=== PATIENT | male | born 1950 | race Caucasian/White ===

== ENCOUNTER 2017-07-09 16:09 | Inpatient (IN) | payer MEDICARE, SELFPAY ==
[2017-07-09] MEDS ORDERED: Adacel (T-DAP) 0.5 ML VIAL ONE (16:35)
[2017-07-09 17:08] LABS: #Eosinphils 0.1 thou/uL (0.0-0.7); #Lymphocytes 1.9 thou/uL (1.20-3.40); #Monocytes 1.4 thou/uL (0.11-0.59); #Neutrophils 15.3 thou/uL (1.40-6.50); %Basophils 0.2 % (0.0-1.0); %Eosinophils 0.5 % (0.0-10.0); %Lymphocytes 10.1 % (21.0-51.0); %Monocytes 7.4 % (0.0-10.0); %Neutrophils 81.9 % (42.0-75.0); Mean Corpuscular HGB CONC 35.7 g/dL (32.0-36.0); Mean Corpuscular Hemoglobin 33.1 pg (27.0-31.0); Mean Corpuscular Volume 92.6 fl (80.0-94.0); Mean Platelet Volume 6.9 fL (7.4-10.4); Platelet Count 269 thou/uL (130-400); RBC Distribution Width 12.9 % (11.5-14.5); Red Blood Cell (RBC) Count 4.25 mill/uL (4.70-6.10); White Blood Cell (WBC) Count 18.6 thou/uL (4.8-10.8)
[2017-07-09 17:15] LABS: PTT 24.8 SEC (22.9-36.1); Prothrombin Time 13.8 SEC (12.0-14.7)
[2017-07-09 17:31] LABS: ALT (SGPT) 24 U/L (8-55); AST (SGOT) 34 U/L (5-34); Albumin 4.2 g/dL (3.4-4.8); Alcohol 36 mg/dL (Less than 10); Alkaline Phosphatase 71 U/L (40-150); Anion Gap 20 mmol/L (10-20); BUN (Urea Nitrogen) 35 mg/dL (8.4-25.7); Bilirubin, Total 0.6 mg/dL (0.2-1.2); Calc. Creatinine Clearance 0 mL/min (70-130); Calcium 9.5 mg/dL (7.8-10.44); Carbon Dioxide 17 mmol/L (23-31); Chloride 102 mmol/L (98-107); Estimated GFR-MDRD 65; Globulin 2.4 g/dL (2.4-3.5); Glucose 154 mg/dL (80-115); Lipase 9 U/L (8-78); Potassium 3.8 mmol/L (3.5-5.1); Protein, Total 6.6 g/dL (5.8-8.1); Sodium 135 mmol/L (136-145)
[2017-07-09] MEDS ORDERED: Morphine 4 MG/ML VIAL ONE (18:09)
--- NOTE | 2017-07-09 18:10 | RAD ---
SUPINE CHEST: 07/09/17 HISTORY: Fall from a pole. Heart size and mediastinum are within normal limits. The lungs appear clear of infiltrative process. No signs of pneumothorax. No rib fractures are identified. IMPRESSION: No acute findings. POS: [facility]
--- NOTE | 2017-07-09 18:13 | CT ---
CT OF BRAIN PERFORMED WITHOUT CONTRAST ENHANCEMENT: 07/09/17 HISTORY: Fall with head injury. The ventricular and cisternal system shows fairly age appropriate change. There is no signs of intrac erebral hemorrhage or extra-axial fluid collections. Mastoid air cells and visualized sinuses are rayne ar. IMPRESSION: No acute intracranial abnormalities. POS: [facility]
--- NOTE | 2017-07-09 19:12 | CT ---
CT OF CERVICAL SPINE PERFORMED WITHOUT CONTRAST ENHANCEMENT: 07/09/17 HISTORY: Fall with neck pain. Vertebral bodies are normal in height. There is severe degenerative changes of the spine. There is ma rked disc narrowing at C3-4, C4-5, C5-6 and C6-7. The facets are in normal alignment. At the C3-4 lev el, there is moderate stenosis related to posterior osteophytic change which is more left sided. Ther e is also bilateral foraminal narrowing. Posterior osteophytic change is associated with mild canal n arrowing at C4-5 and mild bilateral foraminal narrowing. Mild to moderate canal stenosis related to p osterior osteophytic bar is seen at the C5-6 level. There is no CT evidence for fracture. IMPRESSION: No CT evidence of fracture of the cervical spine. Arthritic changes and areas of stenosis as discusse d above. POS: [facility]
--- NOTE | 2017-07-09 19:13 | RAD ---
AP PELVIS: 07/09/17 HISTORY: Fall. There is a fracture through the left iliac crest. The fracture line appears to extend in an oblique f ashion and appears to exit just inferior to the left SI joint. There is irregularity to the left supe rior pubic ramus suggesting some fracture component extending through this area and possibly the acet abulum. Further characterization with CT is recommended. IMPRESSION: Left sided pelvic fracture incompletely characterized on this plain film. CT is recommended for furth er assessment. POS: [facility]
--- NOTE | 2017-07-09 19:42 | CT ---
CT OF THE CHEST WITH CONTRAST CT OF THE ABDOMEN AND PELVIS WITH CONTRAST LIMITED CTS OF THE THORACIC AND LUMBOSACRAL SPINES WITH CONTRAST 07/09/17 HISTORY: Fall from 17 feet with chest pain, abdominal pain, left hip pain and back pain. TECHNIQUE: 1. Multiple contiguous axial images were obtained in a chest with contrast. Coronal reformats we re performed. 2. Multiple contiguous axial images were obtained in a abdomen and pelvis with contrast. Coronal reformats were performed. 3. Limited CTs of the thoracic and lumbosacral spines were performed. Sagittal and coronal refor mats were created based off the images obtained in the chest, abdomen and pelvic CTs. FINDINGS: CT CHEST: Emphysematous changes are seen in the lungs. No focal infiltrates or masses are seen in the lungs. No pneumothorax or pleural effusion are seen. The heart is normal in size without focal cardiac abnormality. No hilar or mediastinal lymphadenopath y are seen. Calcifications are seen in the coronary arteries. The chest wall soft tissues are unremarkable. No rib fractures are seen. CT ABDOMEN/PELVIS: There are hypodensities in the kidneys measuring up to 3.5 cm in size which represents cysts. No foca l gallbladder abnormality is seen. The common bile duct is enlarged measuring 11 mm. No focal liver l esions are seen. There is mild intrahepatic biliary dilatation. The adrenal glands, spleen, and pancreas are unremarkable. No free air, free fluid, or stranding singletary ges are seen in the abdomen or pelvis. The large and small bowel are unremarkable. No abdominal or pelvic lymphadenopathy are seen. There are complex left sided pelvic fractures. There is a fracture of the left iliac wing which exten ds down to the acetabulum and to the left superior pubic ramus. No dislocation of the left hip is see n. There is also fracture of the left inferior pubic ramus. No right sided pelvic fractures are seen. Soft tissue swelling is seen surrounding the left pelvic fractures. LIMITED CT OF THE THORACIC AND LUMBOSACRAL SPINE: There are moderate to severe degenerative changes of the thoracic and lumbosacral spine. Vacuum pheno janis is seen at multiple levels. Moderate osteophytes are seen. There is no evidence of acute fractu re or subluxation. IMPRESSION: 1. No evidence of acute intrathoracic abnormality. 2. No evidence of acute intra-abdominal/pelvic abnormality. 3. Left sided pelvic fractures as above which extend to the left hip joint. 4. Bilateral renal cysts. 5. No evidence of acute osseous abnormality of the thoracic or lumbosacral spine. POS: [facility]
--- NOTE | 2017-07-09 20:23 | HP ---
DATE OF ADMISSION: 07/09/2017 REQUESTING PHYSICIAN: Dr. Lu. ATTENDING SURGEON: Dr. Richmond. CONSULTATIONS: Orthopedics, Dr. Mauro. HISTORY OF PRESENT ILLNESS: The patient is a 66-year-old man who was reportedly working on a light pole and was up approximately 17 feet when he took his safety belt off to maneuver around th e pole, lost his hydrologic modeler and balance and fell. The patient states that he was able to slow his fall noa ewhat, but still landing and packing on his left side. The patient was taken home by friends where h e remained all day until his came home, she noted that the patient was unable to ambulate. She called an ambulance and he was brought by EMS to the Emergency Department where he underwent evaluati on and examination was noted to have a left-sided pelvis fracture to include his acetabulum, at which time we were asked to evaluate the patient for admission and obtain orthopedic consultation. The pa keyanna reports he fell at approximately 7:30 this morning. He denied loss of consciousness. He had n o shortness of breath, chest pain or syncopal type symptoms prior to his fall. ALLERGIES: CRESTOR. CURRENT MEDICATIONS: Carpio 10/325, furosemide 40 mg daily, prednisone 20 mg oral daily, clonazepam 1 mg 2 times a day as needed, amlodipine 10 mg a day, citalopram 20 mg once a day. PAST MEDICAL HISTORY: Hyperlipidemia, hypertension, COPD, emphysema, anxiety and depression. PAST SURGICAL HISTORY: Back surgery, "spinal fusion surgery," right elbow nerve transposition and ca rpal tunnel surgery, bilateral wrists. SOCIAL HISTORY: Patient drinks alcohol approximately once to twice a week. Denies drug use and smok es approximately on average a pack of cigarettes per day. Patient is and lives at home with his . FAMILY HISTORY: Hypertension. REVIEW OF SYSTEMS: Ten-point review of systems is negative as otherwise stated. PHYSICAL EXAMINATION: VITAL SIGNS: Blood pressure 139/92, heart rate 88, respirations 23, oxygen saturation is 98% on room air, temperature is 98.5. GENERAL: The patient is resting comfortably in bed. He is awake, alert, and oriented x3. [place] c josephine scale is 15. HEENT: Head is normocephalic, atraumatic. Eyes: Extraocular motion intact. PERRLA bilaterally. N ose atraumatic without discharge. Ears are atraumatic without discharge. Oropharynx is clear. NECK: Nontender. Trachea is midline. No JVD. CHEST: Scattered rhonchi with occasional expiratory wheezes bilaterally. HEART: Regular rate and rhythm. ABDOMEN: Soft, flat, nontender. PELVIS: Patient has significant tenderness to palpation to the left side of his pelvis consistent wi th his fractures. EXTREMITIES: All neurovascularly intact x4. Capillary refill is less than 3 seconds. Pulses are 2+ . Back by report is nontender and atraumatic. LABORATORY RESULTS: White blood cell count 18.6, hemoglobin 14.0, hematocrit 39.3, platelets 269. S odium 135, potassium 3.8, chloride 102, CO2 is 17, BUN 35, creatinine 1.13, glucose 154. LFTs are un remarkable. Blood alcohol 36. PT 14, INR 1.0, PTT 25. RADIOGRAPHIC FINDINGS: AP chest shows no acute processes. AP pelvis shows left-sided pelvis fractur es. CT of the brain without contrast shows no acute findings. CT of the C-spine without contrast sh ows no acute findings. CT of the chest, abdomen and pelvis is unremarkable with the exception of a c omplex left-sided iliac crest fracture which extends into the left acetabulum. Patient also has left inferior and superior pubic rami fractures. ASSESSMENT AND PLAN: 1. Status post fall from approximately 17 feet. 2. Complex left-sided pelvis fracture. 3. Pain secondary to acute trauma. 4. History of chronic obstructive pulmonary disease. 5. History of hypertension. Plan will be to admit the patient to the surgical floor after discussion with Dr. Mauro. The pat elvin will be taken to the operating room tomorrow, so he will be made n.p.o. after midnight. We will do pain control, pulmonary toilet, gastritis, mechanical DVT prophylaxis. The patient will be evalu ated by physical and occupational therapy postoperatively. The evaluation examination, laboratory ra diographic findings will be discussed with Dr. Richmond after this dictation.
[2017-07-09] MEDS ORDERED: Insulin Regular 300 UNITS/3 ML VIAL SC PRN (20:41)
[2017-07-09] MEDS ORDERED: Ondansetron HCl/PF 4 MG/2 ML Vial IVP PRN (20:41)
[2017-07-09] MEDS ORDERED: HYDROcodone/Acetaminophen 10/325 mg Tablet PO PRN (20:41)
[2017-07-09] MEDS ORDERED: hydrALAZINE 20 MG/ML VIAL SLOW IVP PRN (20:41)
[2017-07-09] MEDS ORDERED: Ondansetron ODT 4 MG TAB PO PRN (20:41)
[2017-07-09] MEDS ORDERED: Morphine 4 MG/ML VIAL SLOW IVP PRN ×2 (20:41)
[2017-07-09] MEDS ORDERED: Dextrose 5% in Water 1,000 ML IV PRN (20:41)
[2017-07-09] MEDS ORDERED: Dextrose 50% Abboject 50 ML SYRINGE SLOW IVP PRN (20:41)
[2017-07-09] MEDS: HYDROcodone/Acetaminophen 10/325 mg Tablet PO PRN (21:01)
[2017-07-09] MEDS: Famotidine 20 MG TAB PO SCH (21:01)
[2017-07-09] MEDS: Ketorolac Tromethamine 30 MG/ML VIAL IVP SCH (23:50)
[2017-07-09] MEDS ORDERED: Sodium Chloride 0.9% 1,000 ML IV SCH (23:55)
--- NOTE | 2017-07-10 02:21 | CON ---
DATE OF CONSULTATION: 07/09/2017 CHIEF COMPLAINT: Fall with hip pain. HISTORY OF PRESENT ILLNESS: Nitin is a 66-year-old male who was working up on a light pole this [employer]. He lost balance after loosening his belt. He fell onto his left side. He was taken home. He had severe pain. He was unable to ambulate. Eventually, he was taken to the emergency department. He has been evaluated with x-ray and CT scan. He has been found to have a complex acetabulum fractu re of the left hip as well as iliac wing fracture. He has been hemodynamically stable. He has recei dara pain medications. He is currently resting comfortably. He does not complain of upper extremity injuries or right-sided injuries. No other severe injuries have been identified so far. ALLERGIES: CRESTOR. CURRENT MEDICATIONS: The patient takes [place] daily, furosemide, prednisone, clonazepam, amlodipine, citalopram. PAST MEDICAL HISTORY: Hyperlipidemia, hypertension, COPD, emphysema, anxiety and depression. PAST SURGICAL HISTORY: Lumbar spine fusion, right ulnar nerve transposition, carpal tunnel release. SOCIAL HISTORY: He drinks alcohol occasionally. He is positive for smoking 1 pack of cigarettes per day. Denies drug use. FAMILY MEDICAL HISTORY: Hypertension. REVIEW OF SYSTEMS: Positive for left hip pain, especially with any movement, otherwise negative 10-p oint review of systems. PHYSICAL EXAMINATION: VITAL SIGNS: Stable. The patient is normotensive. He is 98% on room air. GENERAL: He is lying supine. He is alert, in no apparent distress. RESPIRATORY: Breathing comfortably. ABDOMEN: Soft, nontender, nondistended. He is somewhat obese. CARDIOVASCULAR: Pulses palpable and regular peripherally. MUSCULOSKELETAL: The patient's left hip has pain with any motion. He has equal leg length. He is a ble to flex and extend the foot and ankle. He has a palpable dorsalis pedis pulse. IMAGES: X-rays and CT scan of the pelvis is reviewed. The patient has a complex fracture of the ebcky tabulum on the left hip that extends into the iliac wing. This is an anterior column type fracture. He also has a fracture into the obturator ring. There is significant displacement of the acetabular surface. IMPRESSION: Left acetabulum fracture. PLAN: At this point, the patient will need operative intervention. We will perform this likely on . I would like to give the patient's hematoma a chance to decrease and acute bleeding to resolv e. He will have adequate pain control. He will have DVT prophylaxis. He will have antibiotic proph ylaxis. He will have ongoing tertiary workup and care for any other injuries that arise. I have rev iewed risks and benefits with him. This is a substantial injury and a substantial surgical plan, the re will be loss, he may need blood transfusion, etc. Risks do include infection, pain, scarring, ner ve or vascular injury, nonunion, malunion, hardware failure, and others.
[2017-07-10] MEDS: Ketorolac Tromethamine 30 MG/ML VIAL IVP SCH ×4 (05:20→23:32)
[2017-07-10 05:38] LABS: #Eosinphils 0.1 thou/uL (0.0-0.7); #Lymphocytes 2.7 thou/uL (1.20-3.40); #Monocytes 0.9 thou/uL (0.11-0.59); #Neutrophils 6.1 thou/uL (1.40-6.50); %Basophils 0.3 % (0.0-1.0); %Eosinophils 0.6 % (0.0-10.0); %Lymphocytes 27.5 % (21.0-51.0); %Neutrophils 62.7 % (42.0-75.0); Hemoglobin 12.3 g/dL (14.0-18.0); Mean Corpuscular HGB CONC 33.6 g/dL (32.0-36.0); Mean Corpuscular Hemoglobin 31.6 pg (27.0-31.0); Mean Platelet Volume 6.9 fL (7.4-10.4); Platelet Count 217 thou/uL (130-400); RBC Distribution Width 12.9 % (11.5-14.5); Red Blood Cell (RBC) Count 3.88 mill/uL (4.70-6.10); White Blood Cell (WBC) Count 9.7 thou/uL (4.8-10.8)
[2017-07-10 06:01] LABS: Anion Gap 8 mmol/L (10-20); BUN (Urea Nitrogen) 34 mg/dL (8.4-25.7); Calc. Creatinine Clearance 0 mL/min (70-130); Calcium 8.7 mg/dL (7.8-10.44); Carbon Dioxide 28 mmol/L (23-31); Chloride 106 mmol/L (98-107); Estimated GFR-MDRD 78; Glucose 117 mg/dL (80-115); Potassium 4.4 mmol/L (3.5-5.1); Sodium 138 mmol/L (136-145)
[2017-07-10] MEDS ORDERED: Lorazepam 0.5 MG TAB PO PRN (07:24)
[2017-07-10] MEDS: Sodium Chloride 0.9% 1,000 ML IV SCH ×2 (08:43→18:11)
[2017-07-10] MEDS: clonazePAM 1 MG TAB PO SCH ×2 (08:48→21:39)
[2017-07-10] MEDS: Citalopram 20 MG TAB PO SCH (08:48)
[2017-07-10] MEDS: Famotidine 20 MG TAB PO SCH ×2 (08:48→21:39)
[2017-07-10] MEDS: Amlodipine 10 MG TAB PO SCH (08:48)
[2017-07-10] MEDS: predniSONE 20 MG TAB PO SCH (08:48)
[2017-07-10] MEDS: Furosemide 40 MG TAB PO SCH (08:48)
--- NOTE | 2017-07-10 10:16 | CT ---
CT 3D RENDERING OF THE PELIS. COMPARISON: CT chest, abdomen, and pelvis 07/09/17. TECHNIQUE: Three-D rendering of the pelvis was performed to better assess the patient's pelvic fractures. FINDINGS: There is a complex fracture of the left iliac bone that extends down to the left hip joint. This als o extends to the left superior pubic ramus. There is also a fracture of the left inferior pubic hudson s. IMPRESSION: Complex left pelvis fractures as above. POS: [facility]
[2017-07-10] MEDS: HYDROcodone/Acetaminophen 10/325 mg Tablet PO PRN ×2 (18:07→23:33)
[2017-07-11] MEDS: Sodium Chloride 0.9% 1,000 ML IV SCH (03:35)
[2017-07-11] MEDS: Ketorolac Tromethamine 30 MG/ML VIAL IVP SCH (05:46)
[2017-07-11] MEDS ORDERED: Fentanyl 250 MCG/5 ML VIAL ONE ×2 (08:45→10:05)
[2017-07-11] MEDS ORDERED: Glycopyrrolate 0.2 MG/ML 5 ML SYRINGE ONE (10:36)
[2017-07-11] MEDS ORDERED: PROPOFOL 200 MG/20 ML VIAL ONE (10:36)
[2017-07-11] MEDS ORDERED: Lidocaine 1% PF 5 ML VIAL ONE (10:36)
[2017-07-11] MEDS ORDERED: Ondansetron HCl/PF 4 MG/2 ML Vial IVP PRN (11:30)
[2017-07-11] MEDS ORDERED: Promethazine HCl 25 MG/ML VIAL IM PRN (11:30)
[2017-07-11] MEDS ORDERED: Promethazine HCl 25 MG/ML VIAL SLOW IVP PRN (11:30)
--- NOTE | 2017-07-11 12:58 | RAD ---
PELVIS THREE VIEWS: History: 66-year-old male with history of ORIF left acetabulum and left pelvis. Comparison: 07-09-17 FINDINGS: Extensive metal plate and screws as well as additional internal fixation screws are placed stabilizin g the left pelvis with some improved position and alignment from the pre reduction study. IMPRESSION: Post-operative internal fixation. Improved position and alignment. POS: [facility]
[2017-07-11] MEDS: Furosemide 40 MG TAB PO SCH (13:40)
[2017-07-11] MEDS: Amlodipine 10 MG TAB PO SCH (13:40)
[2017-07-11] MEDS: Famotidine 20 MG TAB PO SCH ×2 (13:40→21:14)
[2017-07-11] MEDS: Citalopram 20 MG TAB PO SCH (13:40)
[2017-07-11] MEDS: clonazePAM 1 MG TAB PO SCH ×2 (13:40→21:14)
[2017-07-11] MEDS: predniSONE 20 MG TAB PO SCH (13:41)
--- NOTE | 2017-07-11 13:43 | OP ---
DATE OF PROCEDURE: 07/11/2017 OPERATION: Open reduction internal fixation of left anterior column acetabulum fracture. PREOPERATIVE DIAGNOSIS: Left acetabulum fracture. POSTOPERATIVE DIAGNOSIS: Left acetabulum fracture. COMPLICATIONS: None. ESTIMATED BLOOD LOSS: 1000 mL SURGEON: Frank Mauro M.D. WELT TRIMMING MACHINE OPERATOR: Mahendra Basilio. IMPLANTS: Synthes pelvic reconstruction plate with multiple nonlocking small fragment screws. INDICATIONS: Mr. Torres is a 66-year-old male, who fell from an electrical pole. He fractured his left acetabulum. This was significantly displaced. He was indicated for open reduction internal fi xation to restore anatomic structures and hopefully salvage his hip joint. Goal of surgery is to mob ilize the patient early. Risks have been reviewed, which does include nerve or vascular injury, DVT, PE, cardiac complication, malunion, nonunion, posttraumatic arthritis and others. DESCRIPTION OF PROCEDURE: Mr. Torres was identified in the preoperative holding area. His correct extremity was marked. He was carried to the operating room. He was positioned supine. General ane sthesia was induced. A multidisciplinary timeout was performed. The patient was placed in traction. The left lower extremity was pulled distally with traction. At this point, we performed an ilioing uinal approach to the pelvis. We dissected down through the subcutaneous tissues. The fascia was ex posed. We then reflected the fascia off the iliac crest. We worked more medially over the iliac cre st into the inner wall of the pelvis reflect in the iliacus muscle. We exposed the anterior column f racture at this point. We then performed our medial and middle window approach. The iliopectineal f ascia was identified after incising the deep inguinal canal. We protected the neurovascular structur es with Alma drains. We developed our middle window by incising the iliopectineal fascia down to the pubic ramus bone. We then reflected the rectus abdominis muscle from the pubic symphysis exposin g the middle window. At this point, our exposure was complete. We then placed multiple reduction clamps across our fracture site and manipulated the fragments back into an anatomic position. We took x-rays in orthogonal planes confirming this. Next, we began fixa tion. We placed multiple interfragmentary screws along the iliac crest. These were placed to stabil ize the iliac wing fracture. We then slid a 14-hole plate along the pelvic brim from medial to later al. We placed multiple screws medially and multiple screws laterally. This compressed the fracture and stabilized that was rigid fixation. We took x-ray images confirming this. Once all screws were placed, we thoroughly irrigated with copious lavage. We then began our closure. Deep #2 Vicryl sutu res were placed followed by 2-0 Vicryl sutures and kip. A sterile dressing was applied. The pat ient was taken to the recovery room in good condition without complication.
[2017-07-11] MEDS: HYDROcodone/Acetaminophen 10/325 mg Tablet PO PRN (16:07)
--- NOTE | 2017-07-11 16:17 | CT ---
NONCONTRAST CT PELVIS: 07/11/17 HISTORY: Followup surgery. Pelvic fractures. COMPARISON: 07/11/17 at 1546 hours. FINDINGS: There have been interval postsurgical changes related to internal fixation of the left pelvic fractur es. There is a malleable plate and multiple screws transfixing the pubic symphysis, left superior pub ic ramus and left iliac bone. There is improved alignment of the comminuted supra-acetabular fracture and left superior pubic ramus fracture. There is also improvement in alignment of the fracture invol ving the left iliac bone. Several screws transfix the fracture of the left iliac wing. There is a fra cture fragment of the medial wall left acetabulum which extends medially and was also present on the prior study. A small amount of hemorrhage just medial to the left acetabulum is also again present an d unchanged. Subcutaneous edema and emphysema is seen about the pelvis with skin clips seen laterally and anteriorly involving the pelvis secondary to recent postsurgical changes. Fracture of the inferior left pubic ramus is again noted. No hip dislocation is seen. Postsurgical changes in the lower lumbar spine are present. There is retrolisthesis of L3 on L4 and t o a lesser extent of L4 on L5. IMPRESSION: 1. Internal fixation of left sided pelvic fractures as described above with improvement in align ment of the fracture fragments. 2. Fracture inferior left pubic ramus. 3. Stranding and hemorrhage within the pelvis is again seen although areas of hemorrhage do appe ar mildly improved. POS: [facility]
[2017-07-11] MEDS ORDERED: Ibuprofen 200 MG TAB PO PRN (17:18)
--- NOTE | 2017-07-11 17:51 | PRG ---
DATE OF SERVICE: 07/11/2017 SUBJECTIVE: This is a 66-year-old male, hospital day #2, postop day #0 status post fall approximatel y 15-20 feet, resulting in a complex left-sided pelvic fracture. The patient has recently returned t o the floor from the operating room. He is hemodynamically stable. CHIEF COMPLAINT: Left-sided pelvic pain. Of note, the patient does have a history of chronic pain f or which he takes MS Contin and [place]. OBJECTIVE: VITAL SIGNS: Reviewed. The patient is resting in bed, in no acute distress. He is on 3 liters via nasal cannula with an O2 sat of 96%. PULMONARY: Normal work of breathing. Symmetric rise. CARDIOVASCULAR: Regular rate and rhythm. GASTROINTESTINAL: Soft, nontender, nondistended. MUSCULOSKELETAL: Moves all extremities x4. NEUROLOGIC: No focal deficit noted. LABORATORY DATA: No new laboratory findings to discuss. ASSESSMENT: 1. Status post fall 15-20 feet. 2. Complex left-sided pelvic fracture. 3. Acute on chronic pain. 4. History of chronic obstructive pulmonary disease/emphysema. 5. History of chronic back pain. 6. History of hypertension. PLAN: Resume home medications to include home pain medications. Continue to observe postoperatively . PT, OT and pulmonary toileting. Inpatient rehab consult has been placed. Of note, patient did re ceive a blood transfusion in the OR. A.m. labs. Patient was discussed with trauma attending.
[2017-07-11] MEDS: Acetaminophen 325 MG TAB PO SCH (18:17)
[2017-07-11] MEDS: Ibuprofen 200 MG TAB PO PRN (18:17)
[2017-07-11] MEDS ORDERED: Morphine ER 15 MG TAB PO SCH (21:00)
[2017-07-11] MEDS: Morphine ER 15 MG TAB PO SCH (21:13)
[2017-07-11] MEDS: HYDROcodone/Acetaminophen 10/325 mg Tablet PO SCH (21:14)
--- NOTE | 2017-07-11 21:26 | CON ---
DATE OF CONSULTATION: 07/11/2017 HISTORY OF PRESENT ILLNESS: Mr. Torres is a 66-year-old male. He appears much older than his age. I am told he was on hospice at home. Apparently, he was up on a light pole and fell 17 feet. It is hard to believe that he was on hospice. This was relayed to me by one of the nurses. He is examined in the recovery room after he had difficult time in the OR from mechanical ventilation standpoint. PAST MEDICAL HISTORY: Remarkable for COPD, hypertension, lipid disorder, anxiety, and depression. PAST SURGICAL HISTORY: Remarkable for spinal fusion and ulnar nerve transposition and carpal tunnel surgery, and wrist surgery. SOCIAL HISTORY: He drinks occasionally. He is not a daily drinker. He denies street drug use. He smokes a pack a day. Last cigarette was 2 days ago. FAMILY HISTORY: Positive for hypertension. Negative for lung disease in early age. REVIEW OF SYSTEMS: In the recovery room review of systems otherwise negative with the exception of pain related to his surgery. A complex hip fracture that has been fixed surgically. PHYSICAL EXAMINATION: GENERAL: Patient appears much older than his age. VITAL SIGNS: His heart rate 80, respiratory rates 18, oximetry was mid 90s in the recovery room. Oximetries this evening 93 on 3 liters. HEENT: Pupils are equal. Sclerae are anicteric. As mentioned, he appears older than his age. NECK: Supple. LUNGS: Remarkable for faint wheezes. HEART: Regular rhythm, no S3. ABDOMEN: Soft and nontender. EXTREMITIES: No clubbing, cyanosis, or edema. LABORATORY DATA: White count 9.7, hemoglobin 12.3, platelets 217,000. Sodium 138, potassium 4.4, chloride 106, bicarbonate 28, BUN 34, creatinine 0.9. Blood alcohol level was drawn in the ER, but I would think the blood alcohol that was detected could be consistent with alcohol on an alcohol swab was 36. Chest CT was reviewed. No infiltrates or mass lesions were seen. IMPRESSION: 1. Pelvis fracture after a fall. 2. Chronic obstructive pulmonary disease with intraoperative hypoxemia. Should have postop nebs, try to avoid steroids for now. He probably needs nebulizer treatments more than 3 times a day. I probably scheduled him for q.4 hours while awake. I will be happy to follow with the other physicians caring for him. This is a 68 consult, greater than 50% of the time was spent in coordinating care on unit. MTDD
[2017-07-12] MEDS: Acetaminophen 325 MG TAB PO SCH ×5 (01:18→23:56)
[2017-07-12] MEDS: Ibuprofen 200 MG TAB PO PRN ×3 (04:21→23:57)
[2017-07-12 05:58] LABS: #Basophils 0.1 thou/uL (0.0-0.2); #Eosinphils 0.1 thou/uL (0.0-0.7); #Lymphocytes 1.4 thou/uL (1.20-3.40); #Monocytes 0.7 thou/uL (0.11-0.59); #Neutrophils 6.7 thou/uL (1.40-6.50); %Basophils 0.6 % (0.0-1.0); %Eosinophils 0.8 % (0.0-10.0); %Lymphocytes 15.6 % (21.0-51.0); %Monocytes 8.3 % (0.0-10.0); %Neutrophils 74.7 % (42.0-75.0); Hemoglobin 9.5 g/dL (14.0-18.0); Mean Corpuscular Hemoglobin 30.8 pg (27.0-31.0); Mean Corpuscular Volume 90.4 fl (80.0-94.0); Mean Platelet Volume 7.7 fL (7.4-10.4); Platelet Count 150 thou/uL (130-400); RBC Distribution Width 15.9 % (11.5-14.5); White Blood Cell (WBC) Count 8.9 thou/uL (4.8-10.8)
[2017-07-12 06:18] LABS: Anion Gap 10 mmol/L (10-20); BUN (Urea Nitrogen) 18 mg/dL (8.4-25.7); Calc. Creatinine Clearance 118 mL/min (70-130); Calcium 7.8 mg/dL (7.8-10.44); Carbon Dioxide 23 mmol/L (23-31); Chloride 109 mmol/L (98-107); Estimated GFR-MDRD Greater than 90; Glucose 149 mg/dL (80-115); Magnesium 1.9 mg/dL (1.6-2.6); Phosphorus 2.9 mg/dL (2.3-4.7); Potassium 3.8 mmol/L (3.5-5.1)
[2017-07-12 06:21] LABS: Sodium 138 mmol/L (136-145)
[2017-07-12] MEDS: Amlodipine 10 MG TAB PO SCH (08:40)
[2017-07-12] MEDS: Citalopram 20 MG TAB PO SCH (08:40)
[2017-07-12] MEDS: Famotidine 20 MG TAB PO SCH ×2 (08:40→21:23)
[2017-07-12] MEDS: clonazePAM 1 MG TAB PO SCH ×2 (08:40→21:26)
[2017-07-12] MEDS: Furosemide 40 MG TAB PO SCH (08:40)
[2017-07-12] MEDS: predniSONE 20 MG TAB PO SCH (08:40)
[2017-07-12] MEDS: HYDROcodone/Acetaminophen 10/325 mg Tablet PO SCH ×3 (08:41→21:24)
[2017-07-12] MEDS: Morphine ER 15 MG TAB PO SCH ×2 (08:43→21:26)
[2017-07-12] MEDS: Enoxaparin Sodium 40 MG/0.4 ML SYRINGE SC SCH (08:44)
--- NOTE | 2017-07-12 16:09 | PRG ---
DATE OF SERVICE: 07/12/2017 SUBJECTIVE: This is a 66-year-old male, hospital day 3, postop day 1, status post fall from approximately 15-20 feet, resulting in a complex left-sided pelvic fracture. The patient had no acute overnight events. Upon my evaluation , he vocalized some left hip discomfort, but did work with physical therapy today and states that pain is controlled at this time. OBJECTIVE: VITAL SIGNS: Temperature 98.6, pulse 91, blood pressure 129/79, respirations 16 , O2 sat 94% on 2 liters nasal cannula. GENERAL: Resting in bed, in no acute distress. Nasal cannula oxygen in place. PULMONARY: Normal work of breathing. Symmetric rise. IS 2500 mL. CARDIOVASCULAR: Regular rate and rhythm. No obvious murmurs, rubs or gallops. GASTROINTESTINAL: Soft, nontender, nondistended. MUSCULOSKELETAL: Moves all extremities x4. NEUROLOGIC: No focal deficit noted. LABORATORY FINDINGS: WBC 8.9, hemoglobin 9.5, hematocrit 28.0, platelet count 150. Sodium 138, potassium 3.8, chloride 109, carbon dioxide 23, BUN 18, creatinine 0.73, glucose 149, phosphorus 2.9, magnesium 1.9. No new radiographic findings. ASSESSMENT: 1. Status post fall, 15-20 feet. 2. Complex left-sided pelvic fracture, postoperative day #1, status post repair. 3. Acute on chronic pain. 4. History of chronic obstructive pulmonary disease and emphysema. 5. History of chronic back pain. 6. History of hypertension. PLAN: Continue pain regimen as ordered. Upon my evaluation this morning, the patient is intermittently drowsy, but easily arousable and answered all questions. Per patient, he was on home hospice up until January of last year when his lung function improved enough to be removed from the hospice program. Since that time, the patient has been having difficulty affording medications and has been off of his medications. Follow Pulmonary recommendations for COPD , emphysema. Continue supportive care as ordered. Importance of PT, OT mobility and pulmonary toileting discussed with the patient. I also discussed possible discharge to inpatient rehab versus home. We will have rehab evaluate the patient. All questions were answered at the time of this dictation. The patient was discussed with trauma attending. ROMINA
--- NOTE | 2017-07-12 21:07 | PRG ---
DATE OF SERVICE: 07/12/2017 SUBJECTIVE: He woke up short of breath, but after his first breathing treatment, he was getting out of bed, he was feeling much better. OBJECTIVE: VITAL SIGNS: He is afebrile, heart rate 86, respiratory rate 16, oximetry is 94 on 2 liters, blood p ressure 131/74. LUNGS: Clear. HEART: Regular rhythm. ABDOMEN: Soft. IMPRESSION: Chronic obstructive pulmonary disease. I discussed this hospice situation with him. He says he is on hospice because some doctor told him chelsea lay is dying from COPD. Once I started providing medicines for him, he improved dramatically and no lo nger qualified for hospice. I have told him that I do not see him succumbing to his COPD anytime in the near future, but unless he is noncompliant with medications. He smokes very heavily. His hemoglobin dropped from 12.3-9.5. This should be continued to be monitored. Electrolytes are un remarkable. He says he has been on steroids for the last year, but he says he takes them some days a nd does not take them other days. This is the hospice team provided him with prednisone as I have ex plained to him and recommended that he stay indefinitely on steroids at his age. He appears to be stable. He has all of his medications at home, he says. We will sign off.
[2017-07-13 05:56] LABS: #Eosinphils 0.2 thou/uL (0.0-0.7); #Lymphocytes 1.9 thou/uL (1.20-3.40); #Neutrophils 5.9 thou/uL (1.40-6.50); %Basophils 0.3 % (0.0-1.0); %Eosinophils 2.2 % (0.0-10.0); %Monocytes 10.5 % (0.0-10.0); Hemoglobin 8.8 g/dL (14.0-18.0); Mean Corpuscular Hemoglobin 30.2 pg (27.0-31.0); Mean Corpuscular Volume 91.4 fl (80.0-94.0); Mean Platelet Volume 7.1 fL (7.4-10.4); Platelet Count 178 thou/uL (130-400); RBC Distribution Width 15.7 % (11.5-14.5)
[2017-07-13] MEDS: Acetaminophen 325 MG TAB PO SCH ×3 (06:27→18:00)
[2017-07-13 06:35] LABS: Anion Gap 9 mmol/L (10-20); BUN (Urea Nitrogen) 22 mg/dL (8.4-25.7); Calc. Creatinine Clearance 101 mL/min (70-130); Calcium 8.5 mg/dL (7.8-10.44); Carbon Dioxide 27 mmol/L (23-31); Chloride 109 mmol/L (98-107); Estimated GFR-MDRD 90; Glucose 124 mg/dL (80-115); Magnesium 2.3 mg/dL (1.6-2.6); Phosphorus 3.6 mg/dL (2.3-4.7); Potassium 3.8 mmol/L (3.5-5.1); Sodium 141 mmol/L (136-145)
[2017-07-13] MEDS: Amlodipine 10 MG TAB PO SCH (09:02)
[2017-07-13] MEDS: Citalopram 20 MG TAB PO SCH (09:03)
[2017-07-13] MEDS: Enoxaparin Sodium 40 MG/0.4 ML SYRINGE SC SCH (09:03)
[2017-07-13] MEDS: clonazePAM 1 MG TAB PO SCH (09:03)
[2017-07-13] MEDS: Famotidine 20 MG TAB PO SCH (09:04)
[2017-07-13] MEDS: HYDROcodone/Acetaminophen 10/325 mg Tablet PO SCH ×2 (09:04→15:57)
[2017-07-13] MEDS: Furosemide 40 MG TAB PO SCH (09:04)
[2017-07-13] MEDS: Morphine ER 15 MG TAB PO SCH (09:05)
[2017-07-13] MEDS: predniSONE 20 MG TAB PO SCH (09:06)
[2017-07-13 13:14] VITALS: BP 129/55; TEMP 97.8
--- NOTE | 2017-07-14 00:35 | DIS ---
DATE OF ADMISSION: 07/09/2017 DATE OF DISCHARGE: 07/13/2017 ADMISSION DIAGNOSES: 1. Status post fall greater than 15-feet. 2. Complex left-sided pelvic fracture. 3. Acute traumatic pain. 4. History of chronic lung disease with previous hospice status. 5. History of hypertension. DISCHARGE DIAGNOSES: 1. Status post fall greater than 15-feet. 2. Complex left-sided pelvic fracture. 3. Acute traumatic pain. 4. History of chronic lung disease with previous hospice status. 5. History of hypertension. CONSULTANTS: Dr. Mauro, orthopedic surgery. Dr. Oseguera, pulmonary and critical care medicine. PROCEDURES: On 07/11/2017, open reduction and internal fixation of left anterior column acetabulum f racture with Dr. Mauro and Dr. Basilio. HOSPITAL COURSE: Nitin Torres is a 66-year-old male who presented to [facility] after falling off a light pole and landing on his left side. He was evaluated in the emergency room, where he was noted to have a left-sided pelvic fracture that included his acetabulum. Orthopedic surgery saw and evaluated the patient and he underwent operative intervention to his injury on 07/11/2017. Pulmonary Medicine was consulted on the date of his surgery secondary to hypoxemia while in the operating room . He was extubated successfully in the PACU to 3 liters nasal cannula and [facility] Patient remained hemodynamically stable and stable from respiratory status thereafter. He was tolerating a general diet, pain was controlled with p.o. analgesics, and he was working with phys ica therapy. He was evaluated by inpatient rehabilitation given his significant lung disease and hi story of chronic pain and now limited mobility. He was accepted to inpatient rehabilitation and [facility] cleared for discharge on 07/13/2017, after discussion with the appropriate consultants. DISCHARGE DISPOSITION: Inpatient rehabilitation. DISCHARGE CONDITION: Fair. PHYSICAL EXAMINATION: VITAL SIGNS: Temperature 97.8, pulse 86, O2 saturation 94% on 2-1/2 liters nasal cannula, blood pres sure 129/55. GENERAL: Well-developed elderly appearing male in no acute distress, sitting out of bed. HEAD: Normocephalic, atraumatic. PULMONARY: Nasal cannula in place. Normal work of breathing, symmetric rise. CARDIOVASCULAR: Regular rate and rhythm. GI: Abdomen soft, nontender, nondistended. MUSCULOSKELETAL: Moves all extremities x4. NEUROLOGIC: No focal deficit noted. DISCHARGE INSTRUCTIONS: Discharge instructions were provided to the accepting facility and the [facility]. He is nonweightbearing on the left lower extremity. He is to continue physical therapy and occu pational therapy. He should continue frequent nebulizing treatments and pulmonary toileting. DISCHARGE MEDICATIONS: As documented in the electronic medical record a list of which was provided t o the accepting facility. FOLLOWUP APPOINTMENTS: Patient should follow up with his primary care provider once discharged from inpatient rehabilitation. He should follow up with Pulmonary Medicine once discharged from inpatient rehabilitation. He should follow up with Orthopedic Surgery 7-10 days, after discharge from [facility] rehabilitation. He does not need to follow up with Trauma services, but may call our office with any questions. This is merely a summary of the patient's hospitalization for more in depth informati on, please see his medical record in its entirety.
--- NOTE | 2017-07-15 10:22 | PQF ---
MICKEY ALVA MICHAEL W MD [id number] [place] [id number] CLINICAL DOCUMENTATION CLARIFICATION FORM: POST DISCHARGE Please exercise your independent, professional judgment in responding to the clarification form. Clinical indicators are provided on the bottom of this form for your review I cannot answer this as I have never seen this patient. Please direct to trauma team. MWS Please check appropriate box(s): [ ] Acute blood loss anemia [ ] Post-op anemia related to acute blood loss [ ] Anemia: [ ] Aplastic [ ] Nutritional [ ] Drug induced (specify) ___ [ ] Hemolytic [ ] Hereditary [ ] Acquired [ ] Autoimmune [ ] Non-autoimmune [ ] Enzyme disorder [ ] Chronic Anemia: [ ] Blood loss [ ] Hemolytic [ ] Simple [ ] Due to Vitamin B12 Deficiency [ ] Other [ ] Anemia of Chronic Disease (please specify) [ ] Anemia due to Neoplasm: [ ] Primary [ ] Secondary [ ] Anemia due to (please choose): [ ] Due to Chemotherapy [ ] Due to Radiotherapy [ ] Due to Immunotherapy [ ] Other diagnosis [ ] Unable to determine In addition, please specify: Present on Admission (POA): [ ] Yes [ ] No [ ] Unable to determine For continuity of documentation, please document condition throughout progress notes and discharge summary. Thank You. CLINICAL INDICATORS - SIGNS / SYMPTOMS / LABS Low hemoglobin and/or hematocrit - HGB/HCT 07/10/17 = 12.3/36.5, 07/12/17 = 9.5/ 28.0, 07/13/17 = 8.8/26.5 Estimated blood loss - 1000ml - op note 07/11/17 RISK FACTORS Left acetabelar fracture with ORIF - 07/11/17 - op note 07/11/17 TREATMENTS: Transfusion of blood products - PRBC 07/11/17 - transfusion documentation (This form is maintained as a part of the permanent medical record) 2014 [employer]. All Rights Reserved Teresa Neal, CCS, GROCERY STOCKER, [email or web address] CHARLYD
--- NOTE | 2017-07-21 13:10 | EKG ---
Test Reason : PREOP Blood Pressure : / mmHG Vent. Rate : 083 BPM Atrial Rate : 083 BPM P-R Int : 140 ms QRS Dur : 088 ms QT Int : 378 ms P-R-T Axes : 066 019 -33 degrees QTc Int : 444 ms Sinus rhythm with Premature atrial complexes Nonspecific T wave abnormality Abnormal ECG When compared with ECG of 18-OCT-2004 08:11, Premature atrial complexes are now Present Confirmed by DR. Savanna VANN ([id number]) on 07/21/2017 1:10:32 PM Referred By: GARTH Confirmed By:DR. Savanna VANN
[2017-07-21 14:35] LABS: Actual Bicarbonate (HCO3a) 26.8 mEq/L (22-26); Base Excess (BEa) -0.4 mEq/L (0 (+/-) 2.5); CO2 Tension 57.6 mmHg (35.0-45.0); Hematocrit-ABG 30.2 % (42.0-52.0); Hemoglobin (Hb) 9.9 g/dL (14.0-18.0); O2 Tension (PaO2) 103.4 mmHg (80.0-100.0); pH, Arterial 7.29 (7.35-7.45)
[2017-07-21 14:36] LABS: Analyzer IN Cardio OR; Calcium, Ionized 1.2 mmol/L (1.12-1.30); Puncture Site ALINE
--- NOTE | 2017-07-22 20:14 | PQF ---
MICKEY ALVA MICHAEL W MD [id number] [place] [id number] Please exercise your independent, professional judgment in responding to the clarification form. Clinical indicators are provided on the bottom of this form for your review. Thank you. Please check appropriate box(s): [ ] Acute blood loss anemia [ ] Post-op anemia related to acute blood loss [ ] Anemia: [ ] Aplastic [ ] Nutritional [ ] Drug induced (specify) ___ [ ] Hemolytic [ ] Hereditary [ ] Acquired [ ] Autoimmune [ ] Non-autoimmune [ ] Enzyme disorder [ ] Chronic Anemia: [ ] Blood loss [ ] Hemolytic [ ] Simple [ ] Due to Vitamin B12 Deficiency [ ] Other [ ] Anemia of Chronic Disease (please specify) [ ] Anemia due to Neoplasm: [ ] Primary [ ] Secondary [ ] Anemia due to (please choose): [ ] Due to Chemotherapy [ ] Due to Radiotherapy [ ] Due to Immunotherapy [ ] Other diagnosis [ ] Unable to determine In addition, please specify: Present on Admission (POA): [ ] Yes [ ] No [ ] Unable to determine For continuity of documentation, please document condition throughout progress notes and discharge summary. Thank You. CLINICAL INDICATORS - SIGNS / SYMPTOMS / LABS Low hemoglobin and/or hematocrit - HGB/HCT 07/10/17 = 9.5/28.0, 07/13/17 = 8.8/ 26.5 Estimated blood loss - 1000ml - op note 07/11/17 RISK FACTORS Surgery - left acetabelar fracture with ORIF - 07/11/17 - op note TREATMENTS: Transfusion of blood products - PRBC 07/11/17 - transfusion documentation (This form is maintained as a part of the permanent medical record) 2014 [employer]. All Rights Reserved Teresa Neal, CCS, IT SYSTEMS ENGINEER, [email or web address]
== END 2017-07-13 18:30 | DRG 517 ==
LOC: ERS 16:09 → SURG A 18:48
PROVIDERS: ADMIT Specialist; ATTEND Specialist
PROC: 0QS504Z Reposition Left Acetabulum with Internal Fixation Device, Open Approach (ICD-10-PCS; principal; 2017-07-11)
PROC: 30233N1 Transfusion of Nonautologous Red Blood Cells into Peripheral Vein, Percutaneous Approach (ICD-10-PCS; 2017-07-11)
DX: S32.402A Unspecified fracture of left acetabulum, initial encounter for closed fracture (principal); W17.89XA Other fall from one level to another, initial encounter; Y93.89 Activity, other specified; Y92.89 Other specified places as the place of occurrence of the external cause; I10 Essential (primary) hypertension; E78.5 Hyperlipidemia, unspecified; J44.9 Chronic obstructive pulmonary disease, unspecified; F41.9 Anxiety disorder, unspecified; F32.9 Major depressive disorder, single episode, unspecified; Z98.1 Arthrodesis status; F17.210 Nicotine dependence, cigarettes, uncomplicated; G89.29 Other chronic pain; G89.11 Acute pain due to trauma; M54.9 Dorsalgia, unspecified; E66.9 Obesity, unspecified
CPT/HCPCS: 36415; 36416; 36430; 70450; 71045; 71260; 72125; 72170; 72190; 72192; 74177; 76001; 76377; 80048; 80053; 80307; 82805; 83690; 83735; 84100; 85025; 85610; 85730; 86850; 86900; 86901; 90471; 90715; 93005; 93010; 94640; 96361; 96374; C1713; G0390; G8978-GP-CL; G8979-GP-CJ; G8987-GO-CK; G8988-GO-CJ; J1642; J1644; J1650; J1885; J2001; J2270; J2704; J3010; J7506; J7620; P9016